=== PATIENT | female | born 1975 | race Caucasian/White ===

== ENCOUNTER 2021-01-12 16:23 | Inpatient (IN) | payer BC ==
[~2021-01-12] VITALS: Ht 162.6 cm; Wt 88.5 kg
[~2021-01-12 16:23] MED LIST: ADDERALL 10 MG10 MG PO; AMOXICILLIN250 MG PO; BACLOFEN 10 MG TAB PO PRN; BACLOFEN20 MG PO; BENTYL10 MG PO; CEFACLOR250 MG PO; DIAZEPAM10 MG PO; LASIX40 MG PO; MOBIC15 MG; NUVIGIL150 MG PO; OXYCONTIN10 MG PO; PERCOCET 10-321 EACH PO; WELLBUTRIN75 MG PO; XANAX2 MG PO; [UNRECOGNIZED DRUG - OTHER] PO
[2021-01-12] MEDS ORDERED: ASPIRIN 81 MG CHEW TAB PO ONE (17:00)
[2021-01-12 17:12] LABS: BASOPHILS # (AUTO) 0.1 (0.0-0.1); BASOPHILS % 0.4 % (0.0-1.0); EOSINOPHILS # (AUTO) 0.1 (0.0-0.4); EOSINOPHILS % 0.7 % (0.0-6.0); HEMATOCRIT 41.1 % (34.2-44.1); HEMOGLOBIN 13.4 g/dL (12.0-16.0); LYMPHOCYTES # (AUTO) 3.2 (1.0-3.2); LYMPHOCYTES % 17.1 % (18.0-39.1); MEAN CORPUSCULAR HEMOGLOBIN 29.7 pg (28-32); MEAN CORPUSCULAR HGB CONC 32.6 g/dL (31-35); MEAN CORPUSCULAR VOLUME 91.1 fL (81-99); MONOCYTES # (AUTO) 0.9 (0.2-0.8); NEUTROPHILS % 76.1 % (38.7-80.0); PLATELET COUNT 318 x10e3/uL (140-360); RED BLOOD COUNT 4.51 x10e6/uL (3.6-5.1); RED CELL DISTRIBUTION WIDTH 14.5 % (11.7-14.4)
[2021-01-12 17:32] LABS: ALANINE AMINOTRANSFERASE 15 IU/L (0-55); ALBUMIN 3.6 g/dL (3.5-5.0); ANION GAP 14.8 mmol/L (8-16); BLOOD UREA NITROGEN 8 mg/dL (7-26); BUN/CREATININE RATIO 9 (6-25); CALCIUM 8.2 mg/dL (8.4-10.2); CARBON DIOXIDE 21 mmol/L (22-29); CHLORIDE 107 mmol/L (98-107); EST GLOMERULAR FILTRATION RATE > 60 ML/MIN (60-); GLUCOSE 117 mg/dL (74-118); POTASSIUM 3.8 mmol/L (3.5-5.1); SODIUM 139 mmol/L (136-145)
[2021-01-12 17:33] LABS: ALKALINE PHOSPHATASE 144 IU/L (40-150); CREATINE KINASE 31 IU/L (29-168)
[2021-01-12] MEDS ORDERED: CEFTRIAXONE SOD 1 GM/50 ML BAG IV ONE (18:00)
[2021-01-12] MEDS ORDERED: SODIUM CHLORIDE 0.9% 1000ML 1,000 ML IV ONE (18:00)
[2021-01-12] MEDS ORDERED: CEFTRIAXONE SOD 1 GM in SODIUM CHLORIDE 0.9% 50ML 50 ML IV ONE (18:15)
[2021-01-12 18:44] LABS: INR 0.95; PROTHROMBIN TIME 13.2 seconds (11.9-14.5)
[2021-01-12 18:45] LABS: PARTIAL THROMBOPLASTIN TIME 30.4 seconds (23.8-35.5)
[2021-01-12 19:12] LABS: CLARITY,URINE CLEAR (CLEAR); COLOR,URINE YELLOW (YELLOW)
[2021-01-12 19:13] LABS: BACTERIA,URINE RARE /HPF; EPITHELIAL CELLS,URINE FEW /LPF; KETONES,URINE NEGATIVE (NEGATIVE); LEUKOCYTE ESTERASE ,URINE NEGATIVE (NEGATIVE); NITRITE,URINE NEGATIVE (NEGATIVE); PROTEIN,URINE DIPSTICK NEGATIVE (NEGATIVE); RBC,URINE 0-5 /HPF (0-5); URINE UROBILINOGEN 0.2 mg/dL (0.2 - 1); WBC,URINE (MAN) 0-5 /HPF (0-5)
[2021-01-12 21:35] VITALS: BP 119/82
[2021-01-12] MEDS ORDERED: PAXIL40 MG PO (22:25)
[2021-01-12] MEDS ORDERED: PREDNISONE20 MG PO (22:25)
[2021-01-12] MEDS ORDERED: PROMETHAZINE HC25 M1 PO (22:25)
[2021-01-12] MEDS ORDERED: TYLENOL325 M2 (22:25)
[2021-01-12] MEDS ORDERED: VITAMIN D3250 MCG (22:25)
[2021-01-12] MEDS ORDERED: TYLENOL # 31 EA PO (22:25)
[2021-01-12] MEDS ORDERED: LIDOCAINE1 EA (22:25)
[2021-01-12] MEDS ORDERED: ROBAXIN-750750 MG PO (22:25)
[2021-01-12] MEDS ORDERED: BENZONATATE200 MG PO (22:25)
[2021-01-12] MEDS ORDERED: ATORVASTATIN CA10 MG PO (22:27)
[2021-01-12] MEDS ORDERED: ALPRAZOLAM 1 MG TAB PO PRN (23:00)
[2021-01-12] MEDS ORDERED: ACETAMINOPHEN/CODEINE 300MG - 30MG TAB PO PRN (23:00)
[2021-01-12] MEDS ORDERED: BENZONATATE 100 MG CAP PO PRN (23:00)
[2021-01-12] MEDS ORDERED: OXYCODONE HCL 10 MG TAB CR PO PRN (23:00)
[2021-01-12 23:30] VITALS: BP 119/82
[2021-01-12 23:44] VITALS: BP 119/82
[2021-01-13] VITALS: BP 103/75
[2021-01-13 04:00] VITALS: BP 112/68
[2021-01-13 06:33] LABS: BASOPHILS % 0.3 % (0.0-1.0); EOSINOPHILS # (AUTO) 0.2 (0.0-0.4); EOSINOPHILS % 1.4 % (0.0-6.0); HEMATOCRIT 39.3 % (34.2-44.1); HEMOGLOBIN 12.7 g/dL (12.0-16.0); LYMPHOCYTES # (AUTO) 3.5 (1.0-3.2); LYMPHOCYTES % 26.7 % (18.0-39.1); MEAN CORPUSCULAR HEMOGLOBIN 29.3 pg (28-32); MEAN CORPUSCULAR HGB CONC 32.3 g/dL (31-35); MEAN CORPUSCULAR VOLUME 90.8 fL (81-99); MONOCYTES # (AUTO) 0.9 (0.2-0.8); MONOCYTES % 6.5 % (4.4-11.3); NEUTROPHILS # (AUTO) 8.4 (2.1-6.9); NEUTROPHILS % 64.5 % (38.7-80.0); PLATELET COUNT 287 x10e3/uL (140-360); RED BLOOD COUNT 4.33 x10e6/uL (3.6-5.1); RED CELL DISTRIBUTION WIDTH 14.5 % (11.7-14.4)
[2021-01-13 06:55] LABS: CREATINE KINASE 31 IU/L (29-168)
[2021-01-13 07:20] LABS: ALANINE AMINOTRANSFERASE 12 IU/L (0-55); ALBUMIN 3.2 g/dL (3.5-5.0); ALBUMIN/GLOBULIN RATIO 0.9 (0.8-2.0); ALKALINE PHOSPHATASE 132 IU/L (40-150); ANION GAP 14.3 mmol/L (8-16); BLOOD UREA NITROGEN 8 mg/dL (7-26); BUN/CREATININE RATIO 11 (6-25); CALCIUM 8.3 mg/dL (8.4-10.2); CARBON DIOXIDE 20 mmol/L (22-29); CHLORIDE 110 mmol/L (98-107); CHOLESTEROL 170 MD/DL (0-199); CREATININE, SERUM 0.74 mg/dL (0.57-1.11); EST GLOMERULAR FILTRATION RATE > 60 ML/MIN (60-); GLUCOSE 108 mg/dL (74-118); HDL CHOLESTEROL 34 MG/DL (40-60); LDL CHOLESTEROL 57 MG/DL (60-130); POTASSIUM 4.3 mmol/L (3.5-5.1); SODIUM 140 mmol/L (136-145); TRIGLYCERIDES 396 MG/DL (0-149)
[2021-01-13 07:25] VITALS: BP 112/68
[2021-01-13 08:04] VITALS: BP 119/89
[2021-01-13] MEDS ORDERED: ASPIRIN 81 MG ENTERIC COATED PO SCH (09:00)
[2021-01-13] MEDS ORDERED: AMPHET ASP PO SCH (09:00)
[2021-01-13] MEDS ORDERED: NICOTINE 14 MG/EA PATCH TOP SCH (09:00)
[2021-01-13] MEDS ORDERED: D AMPHET PO SCH (09:00)
[2021-01-13] MEDS ORDERED: PAROXETINE HCL 20 MG TAB PO SCH (09:00)
[2021-01-13] MEDS ORDERED: ARMODAFINIL 150 MG TAB PO SCH (09:00)
[2021-01-13] MEDS ORDERED: AMPHET PO SCH (09:00)
[2021-01-13] MEDS: ALBUTEROL/IPRATROPIUM 3 ML NEB NEB SCH ×2 (09:15→13:00)
[2021-01-13] MEDS ORDERED: SENNA-S TABLET PO SCH (09:15)
[2021-01-13] MEDS ORDERED: AZITHROMYCIN 500MG/NS 250 ML 250 ML IV SCH (09:15)
[2021-01-13] MEDS ORDERED: ALBUTEROL/IPRATROPIUM 3 ML NEB NEB PRN (09:15)
[2021-01-13] MEDS ORDERED: MAGNESIUM HYDROXIDE 30 ML UDC PO PRN (09:15)
[2021-01-13] MEDS ORDERED: MAGNESIUM/ALUMINUM/SIMETHICONE 30 ML UDC PO PRN (09:15)
[2021-01-13] MEDS ORDERED: METHYLPREDNISOLONE SOD SUCC 40 MG/ML VIAL 1ML IV SCH (09:15)
[2021-01-13] MEDS ORDERED: CEFTRIAXONE SOD 1 GM in SODIUM CHLORIDE 0.9% 50ML 50 ML IV SCH ×2 (09:30→20:00)
[2021-01-13] MEDS ORDERED: SODIUM CHLORIDE 0.9% 250ML 250 ML ONE (09:40)
[2021-01-13] MEDS ORDERED: OXYCODONE HCL IR 5 MG TAB PO PRN (11:15)
[2021-01-13] MEDS ORDERED: REGADENOSON 0.4 MG/5 ML SYR IV ONE (11:20)
[2021-01-13 11:25] LABS: CREATINE KINASE 32 IU/L (29-168)
[2021-01-13 11:47] VITALS: BP 104/69
[2021-01-13 16:00] VITALS: BP 108/81
[2021-01-13] MEDS ORDERED: ENOXAPARIN SOD INJ 40 MG/0.4 ML SYR SC SCH (17:00)
[2021-01-13] MEDS ORDERED: ATORVASTATIN 10 MG TAB PO SCH (21:00)
== END 2021-01-13 15:20 | disposition home or self-care (01) | DRG 192 ==
LOC: ER 17:08 → ERHOLD 19:24 → MED/SURG3 21:23 → OBSVTOIN 01-13 09:13
PROVIDERS: ADMIT Internal Medicine; ATTEND Internal Medicine
DX: J43.9 Emphysema, unspecified (principal); R07.89 Other chest pain; R53.82 Chronic fatigue, unspecified; M79.7 Fibromyalgia; F41.9 Anxiety disorder, unspecified; F32.9 Major depressive disorder, single episode, unspecified; Z79.891 Long term (current) use of opiate analgesic; Z82.49 Family history of ischemic heart disease and other diseases of the circulatory system; G89.29 Other chronic pain; D72.829 Elevated white blood cell count, unspecified; T38.0X5A Adverse effect of glucocorticoids and synthetic analogues, initial encounter; Z20.822 Contact with and (suspected) exposure to COVID-19
CPT/HCPCS: 36415; 71045; 71250; 74176; 78452; 80053; 80061; 81001; 81025; 82550; 82553; 83605; 83880; 84484; 85025; 85379; 85610; 85730; 87040; 93005; 93017; 93306; 99284; A9502; G0378; J0456; J0696; J1650; J2920; J7030; J7050; U0002